=== PATIENT | male | born 2000 | race Caucasian/White ===

== ENCOUNTER 2019-05-09 13:48 | Emergency (ER) | payer OTHER ==
[2019-05-09 13:58] VITALS: BP 164/74; PULSE 100; TEMP 98.3; BMI 25.8
--- NOTE | 2019-05-09 14:04 | PDOC ---
History of Present Illness - General Chief Complaint: Laceration Stated Complaint: CHIN INJURY Time Seen by Provider: 05/09/19 13:56 Past History - Travel Traveled outside of the country in the last 30 days: No Close contact w/someone who was outside of country & ill: No - Past Medical History Allergies/Adverse Reactions: Allergies Allergy/AdvReac Type Severity Reaction Status Date / Time No Known Allergies Allergy Verified 05/09/19 13:51 Home Medications: Ambulatory Orders NK [No Known Home Medication] 05/09/19 COPD: No - Immunization History Immunization Up to Date: Yes - Suicide/Smoking/Psychosocial Hx Smoking History: Never smoked Have you smoked in the past 12 months: No Information on smoking cessation initiated: No Hx Alcohol Use: No Drug/Substance Use Hx: No Review of Systems - Review of Systems Able to Perform ROS?: Yes Comments:: 05/09/19 14:03 CONSTITUTIONAL: Absent: fever, chills, diaphoresis, generalized weakness, malaise, loss of appetite HEENT: Absent: rhinorrhea, nasal congestion, throat pain, throat swelling, difficulty swallowing, mouth swelling, ear pain, eye pain, visual Changes MUSCULOSKELETAL: Absent: myalgia, arthralgia, joint swelling SKIN: Present: laceration to chin Absent: rash, itching, pallor NEUROLOGIC: Absent: headache, focal weakness or paresthesias, dizziness, unsteady gait, seizure, mental status changes, bladder or bowel incontinence PSYCHIATRIC: Absent: anxiety, depression, suicidal or homicidal ideation, hallucinations. Is the patient limited [place] proficient: No *Physical Exam - Vital Signs Last Vital Signs Temp Pulse Resp BP Pulse Ox 98.3 F 100 H 20 164/74 95 05/09/19 13:51 05/09/19 13:51 05/09/19 13:51 05/09/19 13:51 05/09/19 13:51 - Physical Exam Comments: 05/09/19 14:04 GENERAL: The patient is awake, alert, and fully oriented, in no acute distress. HEAD: Normal with no signs of trauma. EYES: Pupils equal, round and reactive to light, extraocular movements intact, sclera anicteric, conjunctiva clear. EXTREMITIES: Normal range of motion, no edema. NEUROLOGICAL: Normal speech, normal gait. PSYCH: Normal mood, normal affect. SKIN: 2cm deep vertical laceration to the mid chin. Bleeding controlled Warm, Dry, normal turgor, no rashes or lesions noted. Medical Decision Making - Medical Decision Making 05/09/19 14:45 The patient is a 19 y/o M with no PMH who presents to the ER for a laceration to his chin. The patient was playing baseball when he ran full speed into a fence. He states that fence tore through his chin. Denies loss of consciousness , lightheadedness, dizziness. Pt is UTD on his tetanus shot. A/P: laceration to chin On exam, 2cm deep laceration to the mid chin, no active bleeding Plastics called at the request of the patient. 05/09/19 15:17 Second call placed 05/09/19 15:[address] Matthew. States she will be in to see the patient 05/09/19 15:40 Dr. Matthew present and at beside with patient 05/09/19 16:[address] Matthew Pt is to f/u in office with Dr. Matthew on Saturday for a wound check DC home with strict return precautions I discussed the physical exam findings, ancillary test results and final diagnoses with the patient. I answered all of the patient's questions. The patient was satisfied with the care received and felt comfortable with the discharge plan and treatment plan. The Patient agrees to follow up with the primary care physician/specialist within 24-72 hours. Return precautions were given. *DC/Admit/Observation/Transfer Diagnosis at time of Disposition: Laceration - Discharge Dispostion Disposition: HOME Condition at time of disposition: Stable Decision to Admit order: No - Referrals Referrals: Nj Castillo [Primary Care Provider] - Arjun Matthew MD [Staff Physician] - - Patient Instructions Printed Discharge Instructions: DI for Laceration Repair Additional Instructions: You had your cut fixed today with stitches. Please follow up with Dr. Matthew's office on Saturday. Her number is attached Eat soft foods in soft bites Do not get the face wet for 24 hours Avoid soaking the face. Keep it dry when showering. Please keep the area clean and pat dry. You may take Tylenol or Motrin as needed for pain. Follow the dosing instruction on the bottle Return to the emergency department sooner if you have area of redness around the site, purulent drainage, fevers, or have any changes in your symptoms. - Post Discharge Activity
[2019-05-09] MEDS ORDERED: LIDOCAINE 1%/EPI 1:100000 (20 ML MULTI DOSE VIAL) INF ONE (15:29)
[2019-05-09] MEDS ORDERED: LIDOCAINE 1%/EPI 1:100000 (20 ML MULTI DOSE VIAL) ONE (15:43)
[2019-05-09] MEDS ORDERED: CEPHALEXIN MONOHYDRATE 500 MG CAPSULE (UD) PO ONE (16:39)
[2019-05-09] MEDS ORDERED: CEPHALEXIN MONOHYDRATE 500 MG CAPSULE (UD) ONE (16:43)
== END 2019-05-09 16:47 | disposition home or self-care (01) ==
LOC: JER 13:48 → JERFT 13:48
PROC: 0JQ13ZZ Repair Face Subcutaneous Tissue and Fascia, Percutaneous Approach (ICD-10-PCS; principal; 2019-05-09)
DX: S01.81XA Laceration without foreign body of other part of head, initial encounter (principal); W22.8XXA Striking against or struck by other objects, initial encounter; Y93.64 Activity, baseball; Y92.320 Baseball field as the place of occurrence of the external cause; Y99.8 Other external cause status
CPT/HCPCS: 99281-25